=== PATIENT | male | born 1985 | race Caucasian/White ===

== ENCOUNTER 2017-09-27 20:38 | Inpatient (IN) | payer SELFPAY ==
[~2017-09-27] VITALS: Ht 182.9 cm; Wt 96.3 kg
[~2017-09-27 20:38] MED LIST: NAPROXEN500 MG PO; NOHOMEMEDS
[2017-09-27 21:22] LABS: HEMATOCRIT 46.3 % (38.0-50.0); HEMOGLOBIN 16.9 G/DL (12.5-16.6); MCH 34.5 PG (29.0-34.0); MCHC 36.5 G/DL (30.0-36.0); MCV 94.5 FL (86-99); PLATELET COUNT 200 K/uL (156-360); RBC DIS.WIDTH-CV 11.6 % (11.8-14.6); RBC DIS.WIDTH-SD 40.2 % (39-53); WHITE BLOOD COUNT 14.2 K/uL (4.1-10.2)
[2017-09-27 21:30] LABS: ALBUMIN 4.7 g/dL (3.2-4.8)
[2017-09-27 21:31] LABS: CHLORIDE 102 mEq/L (99-109); POTASSIUM 3.7 mEq/L (3.7-5.4); SODIUM 140 mEq/L (136-147)
[2017-09-27 21:33] LABS: GLUCOSE 128 mg/dL (70-99); TOTAL PROTEIN 8.3 g/dL (6.4-8.3)
[2017-09-27 21:35] LABS: TOTAL BILIRUBIN 1.1 mg/dL (0.0-1.0)
[2017-09-27 21:36] LABS: ALKALINE PHOSPHATASE 73 IU/L (3-129)
[2017-09-27 21:37] LABS: CREATININE 1.1 mg/dL (0.6-1.3); GFR ESTIMATE (CALCULATED) > 59 mL/min/ (58.99-99999)
[2017-09-27 21:38] LABS: AST (GOT) 143 IU/L (2-34); UREA NITROGEN (BUN) 15 mg/dL (9-23)
[2017-09-27 21:40] LABS: ALT (GPT) 241 IU/L (3-49); LIPASE 685 U/L (1.0-51.0)
[2017-09-27 22:46] LABS: APPEARANCE CLEAR ((CLEAR)); BILIRUBIN NEGATIVE; BLOOD NEGATIVE; COLOR YELLOW ((YELLOW)); GLUCOSE (STRIP) NEGATIVE; KETONES 20; LEUKOCYTES NEGATIVE; NITRITE NEGATIVE; PROTEIN (STRIP) NEGATIVE; UCUL ADDED? NO; UROBILINOGEN 0.2 MG/DL (0.2-1.0)
[2017-09-28 02:40] VITALS: BP 114/58
[2017-09-28 07:32] VITALS: BP 121/61
[2017-09-28 08:39] LABS: BASOPHIL (%) 0.2 % (0-1); EOSINOPHIL (%) 0 % (0-5); HEMOGLOBIN 16.5 G/DL (12.5-16.6); IMMATURE GRANULOCYTE (%) 0.4 % (0.0-0.7); LYMPHOCYTE (%) 4.2 % (15-42); LYMPHOCYTE COUNT 0.7 K/uL (1.0-2.8); MCH 33.7 PG (29.0-34.0); MCHC 35.1 G/DL (30.0-36.0); MCV 95.9 FL (86-99); MONOCYTE (%) 8.7 % (3-12); MONOCYTE COUNT 1.4 K/uL (0-0.8); NEUTROPHIL (%) 86.5 % (45-76); NEUTROPHIL COUNT 14.3 K/uL (1.8-6.4); PLATELET COUNT 217 K/uL (156-360); RBC DIS.WIDTH-CV 11.8 % (11.8-14.6); RBC DIS.WIDTH-SD 41.4 % (39-53); WHITE BLOOD COUNT 16.5 K/uL (4.1-10.2)
[2017-09-28 09:05] LABS: ALBUMIN 4.5 G/DL (3.2-4.8); ALKALINE PHOSPHATASE 52 IU/L (3-129); ALT (GPT) 167 IU/L (3-49); AST (GOT) 81 IU/L (2-34); CHLORIDE 100 MEQ/L (99-109); GFR ESTIMATE (CALCULATED) > 59 mL/min/ (58.99-99999); GLUCOSE 164 mg/dL (70-99); SODIUM 138 MEQ/L (136-147); TOTAL BILIRUBIN 0.9 MG/DL (0.0-1.0); TOTAL PROTEIN 7.3 G/DL (6.4-8.3); UREA NITROGEN (BUN) 13 mg/dL (9-23)
[2017-09-28 11:01] VITALS: BP 129/60
[2017-09-28 15:22] VITALS: BP 122/76
[2017-09-28 23:51] VITALS: BP 130/59
[2017-09-29 05:55] LABS: BASOPHIL (%) 0.1 % (0-1); EOSINOPHIL (%) 0.1 % (0-5); HEMATOCRIT 43.5 % (38.0-50.0); HEMOGLOBIN 15.1 G/DL (12.5-16.6); IMMATURE GRANULOCYTE (%) 0.4 % (0.0-0.7); LYMPHOCYTE (%) 5.8 % (15-42); LYMPHOCYTE COUNT 0.8 K/uL (1.0-2.8); MCH 33.6 PG (29.0-34.0); MCHC 34.7 G/DL (30.0-36.0); MCV 96.7 FL (86-99); MONOCYTE (%) 7.2 % (3-12); NEUTROPHIL (%) 86.4 % (45-76); NEUTROPHIL COUNT 12.3 K/uL (1.8-6.4); PLATELET COUNT 153 K/uL (156-360); RBC DIS.WIDTH-CV 11.8 % (11.8-14.6); RBC DIS.WIDTH-SD 42.2 % (39-53); WHITE BLOOD COUNT 14.3 K/uL (4.1-10.2)
[2017-09-29 06:20] LABS: ALBUMIN 3.8 G/DL (3.2-4.8); ALKALINE PHOSPHATASE 49 IU/L (3-129); ALT (GPT) 98 IU/L (3-49); AST (GOT) 40 IU/L (2-34); CHLORIDE 103 MEQ/L (99-109); CREATININE 0.8 MG/DL (0.6-1.3); GFR ESTIMATE (CALCULATED) > 59 mL/min/ (58.99-99999); GLUCOSE 113 mg/dL (70-99); POTASSIUM 3.6 MEQ/L (3.7-5.4); SODIUM 136 MEQ/L (136-147); TOTAL PROTEIN 6.2 G/DL (6.4-8.3); UREA NITROGEN (BUN) 10 mg/dL (9-23)
[2017-09-29 07:21] VITALS: BP 127/76
[2017-09-29 08:03] LABS: LIPASE 882 U/L (1.0-51.0)
[2017-09-29 15:03] VITALS: BP 133/74
[2017-09-30] VITALS: BP 121/70
[2017-09-30 06:27] LABS: BASOPHIL (%) 0.3 % (0-1); EOSINOPHIL (%) 0.3 % (0-5); HEMATOCRIT 40.3 % (38.0-50.0); HEMOGLOBIN 14.2 G/DL (12.5-16.6); IMMATURE GRANULOCYTE (%) 0.8 % (0.0-0.7); LYMPHOCYTE (%) 11.5 % (15-42); LYMPHOCYTE COUNT 1.4 K/uL (1.0-2.8); MCH 34.6 PG (29.0-34.0); MCHC 35.2 G/DL (30.0-36.0); MCV 98.3 FL (86-99); MONOCYTE (%) 9.6 % (3-12); MONOCYTE COUNT 1.1 K/uL (0-0.8); NEUTROPHIL (%) 77.5 % (45-76); NEUTROPHIL COUNT 9.1 K/uL (1.8-6.4); PLATELET COUNT 124 K/uL (156-360); RBC DIS.WIDTH-CV 11.7 % (11.8-14.6); RBC DIS.WIDTH-SD 42.9 % (39-53); WHITE BLOOD COUNT 11.8 K/uL (4.1-10.2)
[2017-09-30 07:00] LABS: ALBUMIN 3.4 G/DL (3.2-4.8); ALKALINE PHOSPHATASE 55 IU/L (3-129); ALT (GPT) 64 IU/L (3-49); AST (GOT) 31 IU/L (2-34); CHLORIDE 101 MEQ/L (99-109); GFR ESTIMATE (CALCULATED) > 59 mL/min/ (58.99-99999); GLUCOSE 97 mg/dL (70-99); LIPASE 178 U/L (1.0-51.0); MAGNESIUM 1.7 mg/dl (1.3-2.7); POTASSIUM 3.7 MEQ/L (3.7-5.4); SODIUM 137 MEQ/L (136-147); TOTAL PROTEIN 5.9 G/DL (6.4-8.3); UREA NITROGEN (BUN) 8 mg/dL (9-23)
[2017-09-30 07:02] LABS: TOTAL BILIRUBIN 1.6 MG/DL (0.0-1.0)
[2017-09-30 08:29] VITALS: BP 127/85
[2017-09-30 16:24] VITALS: BP 125/78
[2017-09-30 19:45] VITALS: BP 129/75
[2017-09-30 23:58] VITALS: BP 114/65
[2017-10-01 06:58] LABS: BASOPHIL (%) 0.2 % (0-1); EOSINOPHIL (%) 0.7 % (0-5); EOSINOPHIL COUNT 0.1 K/uL (0-0.3); HEMATOCRIT 39.4 % (38.0-50.0); IMMATURE GRANULOCYTE (%) 0.4 % (0.0-0.7); LYMPHOCYTE (%) 9.7 % (15-42); MCH 34.4 PG (29.0-34.0); MCHC 35.5 G/DL (30.0-36.0); MCV 96.8 FL (86-99); MONOCYTE (%) 9.6 % (3-12); NEUTROPHIL (%) 79.4 % (45-76); NEUTROPHIL COUNT 7.8 K/uL (1.8-6.4); PLATELET COUNT 138 K/uL (156-360); RBC DIS.WIDTH-CV 11.7 % (11.8-14.6); RED BLOOD COUNT 4.07 M/uL (4.00-5.50); WHITE BLOOD COUNT 9.9 K/uL (4.1-10.2)
[2017-10-01 07:36] LABS: ALBUMIN 3.6 G/DL (3.2-4.8); ALKALINE PHOSPHATASE 61 IU/L (3-129); ALT (GPT) 84 IU/L (3-49); CHLORIDE 101 MEQ/L (99-109); CREATININE 0.8 MG/DL (0.6-1.3); GFR ESTIMATE (CALCULATED) > 59 mL/min/ (58.99-99999); GLUCOSE 88 mg/dL (70-99); MAGNESIUM 1.9 mg/dl (1.3-2.7); POTASSIUM 3.6 MEQ/L (3.7-5.4); SODIUM 139 MEQ/L (136-147); TOTAL BILIRUBIN 1.4 MG/DL (0.0-1.0); TOTAL PROTEIN 6.3 G/DL (6.4-8.3); UREA NITROGEN (BUN) 8 mg/dL (9-23)
[2017-10-01 07:38] LABS: AST (GOT) 56 IU/L (2-34)
[2017-10-01 08:11] VITALS: BP 126/70
[2017-10-01 08:48] LABS: LIPASE 153 U/L (1.0-51.0)
[2017-10-01] MEDS ORDERED: ENDOCET 5-3251 EACH PO (12:22)
[2017-10-01] MEDS ORDERED: Thiamine,Vitamin B1 PO (12:22)
[2017-10-01] MEDS ORDERED: FOLIC ACID1 MG PO (12:22)
== END 2017-10-01 13:53 | disposition home or self-care (01) | DRG 440 ==
LOC: EME 20:38 → 5SOUTH 09-28 01:41 → EDOF 09-28 01:41 → ENRESERV 09-28 01:49 → 5SOUTH 09-28 02:41
PROVIDERS: Internal Medicine; Physician Assistant
DX: K85.30 Drug induced acute pancreatitis without necrosis or infection (principal); F17.200 Nicotine dependence, unspecified, uncomplicated; R74.0 Nonspecific elevation of levels of transaminase and lactic acid dehydrogenase [LDH]; F10.20 Alcohol dependence, uncomplicated
CPT/HCPCS: 74177; 80053; 81003; 83690; 83735; 85025; 85027; 99281; 99285; J1650; J2270; J2405; J3411; J7030; J7042

== ENCOUNTER 2018-02-03 18:21 | Inpatient (IN) | payer SELFPAY ==
[~2018-02-03] VITALS: Ht 182.9 cm; Wt 93.3 kg
[~2018-02-03 18:21] MED LIST changes: +ENDOCET 5-3251 EACH PO; +FOLIC ACID1 MG PO; +Thiamine,Vitamin B1 PO
[2018-02-03 19:45] LABS: HEMATOCRIT 47.2 % (38.0-50.0); HEMOGLOBIN 17.2 G/DL (12.5-16.6); MCH 34.3 PG (29.0-34.0); MCHC 36.4 G/DL (30.0-36.0); MCV 94.2 FL (86-99); PLATELET COUNT 157 K/uL (156-360); RBC DIS.WIDTH-CV 12.3 % (11.8-14.6); RBC DIS.WIDTH-SD 42.6 % (39-53); RED BLOOD COUNT 5.01 M/uL (4.00-5.50); WHITE BLOOD COUNT 12.9 K/uL (4.1-10.2)
[2018-02-03 20:11] LABS: ALBUMIN 4.6 G/DL (3.2-4.8); ALKALINE PHOSPHATASE 66 IU/L (3-129); ALT (GPT) 53 IU/L (3-49); AST (GOT) 55 IU/L (2-34); CHLORIDE 97 MEQ/L (99-109); GFR ESTIMATE (CALCULATED) > 59 mL/min/ (58.99-99999); GLUCOSE 93 mg/dL (70-99); POTASSIUM 4.1 MEQ/L (3.7-5.4); SODIUM 135 MEQ/L (136-147); TOTAL BILIRUBIN 1.3 MG/DL (0.0-1.0); TOTAL PROTEIN 8.1 G/DL (6.4-8.3); UREA NITROGEN (BUN) 14 mg/dL (9-23)
[2018-02-03 20:51] LABS: LIPASE 2724 U/L (1.0-51.0)
[2018-02-04 00:16] LABS: APPEARANCE CLEAR ((CLEAR)); BILIRUBIN NEGATIVE; BLOOD NEGATIVE; COLOR YELLOW ((YELLOW)); GLUCOSE (STRIP) NEGATIVE; KETONES 80; LEUKOCYTES NEGATIVE; NITRITE NEGATIVE; PROTEIN (STRIP) 30; SPECIFIC GRAVITY 1.039 (1.000-1.030); UCUL ADDED? NO; UROBILINOGEN 0.2 MG/DL (0.2-1.0)
[2018-02-04] MEDS ORDERED: B-1100 MG PO (01:25)
[2018-02-04] MEDS ORDERED: ULTRAM50 MG PO (01:28)
[2018-02-04] MEDS ORDERED: TYLENOL EXTRA500 MG PO (01:28)
[2018-02-04 04:07] LABS: MAGNESIUM 1.9 mg/dl (1.3-2.7); SERUM ETHYL ALCOHOL < 10 mg/dL
[2018-02-04 04:48] VITALS: BP 136/76
[2018-02-04 07:56] VITALS: BP 112/58
[2018-02-04 11:49] VITALS: BP 119/66
[2018-02-04 15:36] VITALS: BP 131/77
[2018-02-04 19:47] VITALS: BP 110/72
[2018-02-04 23:15] VITALS: BP 127/74
[2018-02-05 03:49] LABS: BENZODIAZEPINES, URINE SCREEN Negative (200 ng/mL)
[2018-02-05 04:36] VITALS: BP 124/69
[2018-02-05 06:59] LABS: ALBUMIN 3.5 G/DL (3.2-4.8); ALKALINE PHOSPHATASE 62 IU/L (3-129); ALT (GPT) 32 IU/L (3-49); AMYLASE 198 IU/L (1-118); AST (GOT) 31 IU/L (2-34); CHLORIDE 102 MEQ/L (99-109); CREATININE 0.9 MG/DL (0.6-1.3); GFR ESTIMATE (CALCULATED) > 59 mL/min/ (58.99-99999); GLUCOSE 82 mg/dL (70-99); LIPASE 876 U/L (1.0-51.0); SODIUM 139 MEQ/L (136-147); TOTAL BILIRUBIN 1.5 MG/DL (0.0-1.0); UREA NITROGEN (BUN) 7 mg/dL (9-23)
[2018-02-05 08:00] VITALS: BP 137/77
[2018-02-05 12:18] VITALS: BP 125/83
[2018-02-05 16:00] VITALS: BP 133/81
[2018-02-05 20:57] VITALS: BP 117/70
[2018-02-06 00:53] VITALS: BP 138/65
[2018-02-06 04:38] VITALS: BP 115/68
[2018-02-06 08:49] VITALS: BP 125/80
[2018-02-06 11:00] VITALS: BP 127/76
[2018-02-06 16:09] VITALS: BP 124/85
[2018-02-06 23:36] VITALS: BP 125/82
[2018-02-07 08:25] VITALS: BP 128/75
[2018-02-07] MEDS ORDERED: NICOTINE PATCH1 EAC2 TD (11:34)
[2018-02-07] MEDS ORDERED: PERCOCET 5/31 TABLET PO (11:34)
[2018-02-07] MEDS ORDERED: COLACE100 MG PO (11:42)
[2018-02-07 11:43] VITALS: BP 122/60
== END 2018-02-07 12:55 | disposition home or self-care (01) | DRG 439 ==
LOC: EME 18:21 → EDOF 02-04 01:54 → ENRESERV 02-04 01:57 → 3EAST 02-04 04:43
PROVIDERS: Physician Assistant Medical
DX: K85.20 Alcohol induced acute pancreatitis without necrosis or infection (principal); E87.1 Hypo-osmolality and hyponatremia; E86.0 Dehydration; F10.20 Alcohol dependence, uncomplicated; F90.9 Attention-deficit hyperactivity disorder, unspecified type; F32.9 Major depressive disorder, single episode, unspecified; F17.200 Nicotine dependence, unspecified, uncomplicated
CPT/HCPCS: 74177; 76705; 80053; 80306 90; 81003; 82150; 83690; 83735; 85027; 99281; 99285; C9113; G0480; J1170; J1885; J2270; J2405; J3411; J7030; J7120